=== PATIENT | male | born 1990 | race Caucasian/White ===

== ENCOUNTER 2017-07-05 09:48 | Emergency (ER) | payer OTHER ==
[2017-07-05] MEDS ORDERED: Lidocaine 1% (PF) 30 ML VIAL ONE (11:43)
--- NOTE | 2017-07-05 11:46 | RAD ---
TWO VIEWS LEFT FEMUR: CLINICAL HISTORY: Left thigh laceration. Four views provided. FINDINGS: There is soft tissue irregularity with air density of the distal thigh compatible with laceration. Underlying this region at the anterior aspect of the distal femur, there is subtle cortical irregula rity suggestive of an impaction injury, although this is difficult to reliably assess. IMPRESSION: Subtle impaction fracture suspected at the distal and anterior femur, although cannot be confirmed. Recommend dedicated well-positioned left knee radiograph series for further evaluation. Soft tissue injury. POS: BR[facility]
[2017-07-05] MEDS ORDERED: Bacitracin Zinc 1 Packet ONE (13:15)
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
== END 2017-07-05 14:15 | disposition home or self-care (01) ==
LOC: ERS 09:48
DX: S71.112A Laceration without foreign body, left thigh, initial encounter (principal); F90.9 Attention-deficit hyperactivity disorder, unspecified type; F17.210 Nicotine dependence, cigarettes, uncomplicated; W20.8XXA Other cause of strike by thrown, projected or falling object, initial encounter
CPT/HCPCS: 12032; 99406; J2001

== ENCOUNTER 2018-12-11 21:27 | Inpatient (IN) | payer BC, OTHER ==
[2018-12-11] MEDS ORDERED: Ibuprofen 800 MG TAB ONE (23:15)
[2018-12-11 23:34] LABS: Bilirubin Negative (Negative); Blood, Urine Negative (Negative); Clarity CLEAR (Clear); Glucose, Urine (Dipstick) Negative (Negative); Leukocyte Negative (Negative); Nitrite Negative (Negative); Protein, Urine (Dipstick) 30 mg/dL (Neg-Trace); Specific Gravity, Urine 1.027 (1.002-1.036); Urobilinogen 0.2 mg/dL (0.2-1.0)
[2018-12-11 23:36] LABS: Bacteria/HPF None Seen HPF (None Seen); Hyaline Casts/LPF 0-3 HYALINE CAST LPF (0-3 Hyaline); RBC/HPF 0-3 HPF (0-3); Squamous Epithelial 0-3 HPF (0-3); WBC/HPF 0-3 HPF (0-3)
[2018-12-12 01:08] LABS: #Lymphocytes 0.9 thou/uL (1.20-3.40); #Monocytes 0.8 thou/uL (0.11-0.59); #Neutrophils 13.2 thou/uL (1.40-6.50); %Basophils 0.3 % (0.0-1.0); %Eosinophils 0.2 % (0.0-10.0); %Lymphocytes 5.8 % (21.0-51.0); %Monocytes 5.3 % (0.0-10.0); %Neutrophils 88.4 % (42.0-75.0); Hemoglobin 14.6 g/dL (14.0-18.0); Mean Corpuscular HGB CONC 33.9 g/dL (32.0-36.0); Mean Corpuscular Hemoglobin 29.4 pg (27.0-31.0); Mean Corpuscular Volume 86.7 fL (78.0-98.0); Mean Platelet Volume 8.2 fL (7.4-10.4); Platelet Count 203 thou/uL (130-400); RBC Distribution Width 12.6 % (11.5-14.5); Red Blood Cell (RBC) Count 4.98 mill/uL (4.70-6.10); White Blood Cell (WBC) Count 14.9 thou/uL (4.8-10.8)
[2018-12-12 01:19] LABS: ALT (SGPT) 28 U/L (8-55); AST (SGOT) 22 U/L (5-34); Albumin 4.3 g/dL (3.5-5.0); Alkaline Phosphatase 62 U/L (40-150); Anion Gap 16 mmol/L (10-20); BUN (Urea Nitrogen) 13 mg/dL (8.9-20.6); Bilirubin, Total 0.5 mg/dL (0.2-1.2); CK (CPK) 142 U/L (30-200); Calc. Creatinine Clearance 0 mL/min (70-130); Calcium 9.1 mg/dL (7.8-10.44); Carbon Dioxide 19 mmol/L (22-29); Chloride 106 mmol/L (98-107); Estimated GFR-MDRD 80; Globulin 3.1 g/dL (2.4-3.5); Glucose 132 mg/dL (70-105); Potassium 3.6 mmol/L (3.5-5.1); Protein, Total 7.4 g/dL (6.0-8.3); Sodium 137 mmol/L (136-145)
[2018-12-12] MEDS ORDERED: Aspirin 325 MG TAB ONE (02:57)
[2018-12-12] MEDS ORDERED: Metoclopramide HCl 10 MG/2 ML VIAL ONE (02:57)
[2018-12-12] MEDS ORDERED: Piperacillin/Tazobactam 4.5 GM VIAL ONE (02:57)
[2018-12-12] MEDS ORDERED: Dicyclomine 20 MG TAB ONE (03:46)
[2018-12-12] MEDS ORDERED: Ondansetron ODT 4 MG TAB SL PRN (05:16)
[2018-12-12] MEDS ORDERED: Sodium Chloride 0.9% 1,000 ML IV SCH (05:16)
[2018-12-12] MEDS ORDERED: Acetaminophen 325 MG TAB PO PRN (05:16)
[2018-12-12] MEDS ORDERED: Ondansetron PF 4 MG/2 ML Vial IVP PRN ×2 (05:16→08:43)
[2018-12-12 05:18] VITALS: BMI 46.0
[2018-12-12 07:23] LABS: Troponin I Less than 0.010 ng/mL (< 0.028)
--- NOTE | 2018-12-12 07:32 | RAD ---
2 views of the chest: 12/12/2018 COMPARISON: 09/29/2014 HISTORY: Chest pain FINDINGS: Midline sternotomy wires are present. Azygos lobe and fissure noted. There is an old left c lavicle fracture. No pneumothorax, pleural fluid, focal consolidation, or alveolar edema. IMPRESSION: No acute findings.
--- NOTE | 2018-12-12 07:38 | CT ---
Contrast-enhanced CT images abdomen pelvis. HISTORY: Abdominal pain. Contrast-enhanced CT images of the abdomen and pelvis obtained. The lung bases are unremarkable. No evidence of free intraperitoneal air seen. The liver, 6, spleen, gallbladder, pancreas, adrenal gl ands and kidneys are unremarkable. No dilated loops of small bowel seen. A normal appendix is visualized. Minimally enlarged right lower quadrant mesenteric lymph nodes are present. This may represent mild c hanges of mesenteric adenitis. No evidence of abscess seen. L4-5 vacuum disc changes seen. IMPRESSION: Mildly enlarged mesenteric lymph nodes. QA I concur with the dictation from virtual radi[employer].
[2018-12-12] MEDS ORDERED: Sodium Chloride 0.65% Nasal 44 ML BOT EA NARE PRN (08:43)
[2018-12-12] MEDS ORDERED: Bisacodyl 5 MG TAB PO PRN ×2 (08:43)
[2018-12-12] MEDS ORDERED: Benzonatate 100 MG CAP PO PRN (08:43)
[2018-12-12] MEDS ORDERED: Diabetic Tussin 200 MG/10 ML UDCUP PO PRN (08:43)
[2018-12-12] MEDS ORDERED: hydrALAZINE 20 MG/ML VIAL SLOW IVP PRN (08:43)
[2018-12-12] MEDS ORDERED: Nitroglycerin 0.4 MG TAB (25 Tab Bottle) SL PRN (08:43)
[2018-12-12] MEDS ORDERED: cloNIDine 0.1 MG TAB PO PRN (08:43)
[2018-12-12] MEDS ORDERED: Senokot S 8.6-50 MG TAB PO PRN ×2 (08:43)
[2018-12-12] MEDS ORDERED: Vancomycin HCl 1 GM in Premix Bag 1 BAG IVPB SCH (09:00)
[2018-12-12] MEDS: Enoxaparin Sodium 40 MG/0.4 ML SYRINGE SC SCH (09:30)
[2018-12-12] MEDS: Famotidine 20 MG TAB PO SCH ×2 (09:31→21:40)
[2018-12-12] MEDS: Acetaminophen 325 MG TAB PO PRN ×3 (09:31→21:50)
[2018-12-12] MEDS: Sodium Chloride 0.9% 1,000 ML IV SCH ×2 (09:36→21:44)
[2018-12-12 10:07] LABS: Troponin I Less than 0.010 ng/mL (< 0.028)
[2018-12-12] MEDS ORDERED: Enoxaparin Sodium 100 MG/ML SYRINGE SC SCH (11:00)
--- NOTE | 2018-12-12 12:32 | CT ---
Contrast-enhanced CTA chest. HISTORY: Chest pain and elevated d-dimer Contrast enhanced CTA of the chest performed. 2-D and 3-D reconstruction images performed on the [employer] 3-D workstation. Raff the aortic arch is unremarkable. No evidence of mediastinal, axillary or hilar lymphadenopathy seen. No evidence of filling defects seen in the pulmonary arteries to suggest pulmonary emboli. No evidence of pleural or pericardial effusion seen. Old healed left clavicular fracture seen. IMPRESSION: Unremarkable CTA chest.
--- NOTE | 2018-12-12 12:45 | ULT ---
EXAM: Bilateral lower extremity venous ultrasound HISTORY: Bilateral lower extremity pain and edema COMPARISON: None TECHNIQUE: Multiplanar grayscale and color Doppler images were obtained in a bilateral lower extremit y venous ultrasound. Spectral analysis of the Doppler waveforms were performed. FINDINGS: The bilateral common femoral vein, profunda femoral veins, superficial femoral veins, and p opliteal veins are normal in appearance without visible thrombus. These vessels demonstrate normal compression, flow, and augmentation. The bilateral posterior tibial veins and greater saphenous veins are patent without evidence of DVT. IMPRESSION: No evidence of DVT.
[2018-12-12 13:32] LABS: Amphetamine Not Detected (NotDetected); Barbiturates Screen Not Detected (NotDetected); Benzodiazepine Screen Not Detected (NotDetected); Cocaine Metabolite Screen Not Detected (NotDetected); Medtox Control Line Valid? VALID (VALID); Medtox Reader # READER 4; Methadone Not Detected (NotDetected); Methamphetamine Not Detected (NotDetected); Opiate Screen Not Detected (NotDetected); Oxycodone Screen Not Detected (NotDetected); Phencyclidine (PCP) Not Detected (NotDetected); THC/Cannabinoid Screen Not Detected (NotDetected); Tricyclic Screen Not Detected (NotDetected)
--- NOTE | 2018-12-12 13:38 | HP ---
PRIMARY CARE PHYSICIAN: None. CHIEF COMPLAINT: Fever, body aches, cough, chest pain. HISTORY OF PRESENTING ILLNESS: Mr. 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 History is mainly obtained by the patient himself and electronic medical records have been reviewed. Mr. Shah states that he has been having generalized malaise and weakness for the last three days, but yesterday, he started to experience high-grade fever as high as 102. This is associated with diffuse lower abdominal pain, diarrhea, nausea, vomiting, and body aches. He also has been having some on and off sharp chest pain without any specific dizziness or shortness of breath. He denies any recent sick contacts. He denies any recent travel. No dyspnea on exertion or orthopnea or PND. He denies any hematochezia or melena. He denies any dysuria, frequency, or urgency. Upon presentation to the emergency room, his blood pressure was 109/69. He was tachycardic with a heart rate of 115, and temperature 102.5. His workup was rather unremarkable. His CBC shows leukocytosis with WBCs of 14.9 with 88% neutrophils. Serum chemistry was unremarkable. Serial cardiac enzymes were normal. Lactic acid was normal. Urinalysis did not have any evidence of any infection. Chest x-ray did not show any evidence of pneumonia per my review. Underwent a CT scan of the abdomen and pelvis because of complaints of diarrhea and abdominal pain, which did not show any acute changes. Appendix was normal. Liver, spleen, gallbladder, pancreas, adrenal gland, and kidneys were normal. He was given empiric antibiotics and is now being admitted to Medicine Service for further evaluation and care. He denies any open sores, wounds, or recent trauma. He denies any joint pain or muscle pain. PAST MEDICAL HISTORY: 1. Gout. 2. History of congenital pyloric stenosis requiring surgery. 3. History of infective endocarditis with valve replacement due to surgery of pyloric stenosis. The patient is unsure what exact surgery was it. Mother is not in the room at this time. PAST SURGICAL HISTORY: 1. Open heart surgery x3. 2. Pediatric valve replacement. PSYCHIATRIC HISTORY: ADHD. SOCIAL HISTORY: He currently uses vapor tobacco. No history of drug or alcohol abuse. FAMILY HISTORY: No significant family history of bleeding or clotting disorders. No history of cardiac disease. ALLERGIES: NO KNOWN MEDICATION ALLERGIES. CURRENT MEDICATION: Allopurinol 100 mg a day. REVIEW OF SYSTEMS: A 14-point review of system is done, it is negative except for those mentioned in the history and physical. LABORATORY DATA: Lab examination as per HPI. A 12-lead EKG by my review shows sinus tachycardia with incomplete right bundle branch block PHYSICAL EXAMINATION: VITAL SIGNS: Most recent vital signs, T-max 101.4, heart rate 101 to 109, saturating 96% on room air, respirations 18. Blood pressure 129/57. GENERAL: He is lying comfortably in bed and is in no acute distress. He is awake, alert, and oriented x3. No respiratory distress noticed either. One of the onset at bedside. HEENT: Mucous membrane is moist and pink. No oropharyngeal exudate or erythema. Head is normocephalic and atraumatic. Pupils are equal and reactive to light and accommodation. Extraocular movements are intact. NECK: Supple without any lymphadenopathy, JVD, or bruit. CHEST: Clear to auscultation without any wheezing, rales, or rhonchi. HEART: Rate and rhythm are regular without any murmurs, rubs, or gallops. ABDOMEN: Soft, nontender, nondistended, and obese. No guarding, rebound, or rigidity. EXTREMITIES: Free of any cyanosis, clubbing, or edema. SKIN: Free of any erythema or rashes, bruises, or warmth. NEUROLOGIC: Nonfocal. PSYCHIATRIC: Normal affect. IMPRESSION AND PLAN: 1. Febrile illness. This patient does have leukocytosis, but no real source of infection. He does not have elevated lactic acid. Most likely a viral illness; however, we will have to rule out PE and DVT given the fever and no other source and possible chest pain at presentation. His cardiac enzymes have been unremarkable. D-dimer will be ordered and if it is positive, we will get a CT angio of the thorax as well as lower extremity Doppler ultrasound. If the D-dimer is elevated, he will be treated with full dose of Lovenox until CT angio and DVT is ruled out. Otherwise, he will be continued on empiric IV antibiotics. Blood cultures have been obtained and we will follow the results. We will also check the stool for any C diff. We will also check respiratory viral pathogen by PCR. An echocardiogram will also be done to rule out any possibility of recurrent infective endocarditis, though it is less likely. 2. History of gout. Restart home medications of allopurinol. 3. History of congenital infective endocarditis as a postsurgical complication. Currently stable. Echo as above. 4. Deep venous thrombosis and gastrointestinal prophylaxis and walking program. DISPOSITION: Mr. Shah is being admitted to the hospital for a febrile illness of unknown etiology. He does not have sepsis. Further management will depend upon his clinical course, but estimated length of stay at this time is at least 2 to 3 midnights. Job ID: [id number]
[2018-12-12] MEDS ORDERED: ISOVUE-370 76%-LOCM 1 ML ONE (13:50)
[2018-12-12] MEDS: Ondansetron ODT 4 MG TAB PO PRN (13:50)
[2018-12-12] MEDS: Piperacillin/Tazobactam 3.375 GM in Sodium Chloride 0.9% 100 ML IVPB SCH ×2 (13:50→17:46)
[2018-12-12] MEDS ORDERED: Iopamidol 370 76% 100 ML VIAL ONE (13:56)
[2018-12-13] MEDS: Piperacillin/Tazobactam 3.375 GM in Sodium Chloride 0.9% 100 ML IVPB SCH ×5 (00:05→23:09)
[2018-12-13] MEDS: Sodium Chloride 0.9% 1,000 ML IV SCH ×3 (01:50→23:56)
[2018-12-13] MEDS: Acetaminophen 325 MG TAB PO PRN (09:49)
[2018-12-13] MEDS: Famotidine 20 MG TAB PO SCH ×2 (09:49→20:35)
[2018-12-13] MEDS: Allopurinol 100 MG TAB PO SCH (09:49)
[2018-12-13] MEDS: Ondansetron ODT 4 MG TAB PO PRN ×3 (09:49→23:55)
[2018-12-13] MEDS: Enoxaparin Sodium 40 MG/0.4 ML SYRINGE SC SCH (09:50)
--- NOTE | 2018-12-13 10:02 | PDOC.PN ---
- Subjective Encounter Start Date: 12/13/18 Encounter Start Time: 10:01 Patient seen and examined, states he feels better, only has abdominal pain and nothing else. - Objective Vital Signs & Weight: Vital Signs (12 hours) Temp Pulse Resp BP Pulse Ox 12/13/18 07:40 100.1 F H 84 15 131/79 93 L 12/13/18 04:00 99.0 F 80 18 116/55 L 97 12/13/18 00:00 98.9 F 94 18 111/54 L 94 L Weight Weight 321 lb 6.4 oz I&O: 12/12/18 12/13/18 12/14/18 06:59 06:59 06:59 Intake Total 1750 Balance 1750 Result Diagrams: 12/12/18 00:43 12/12/18 00:43 Phys Exam - Physical Examination Constitutional: NAD obese HEENT: PERRLA, moist MMs, sclera anicteric Neck: no nodes, no JVD, supple Respiratory: no wheezing, no rales, no rhonchi Cardiovascular: RRR, no significant murmur, no rub Gastrointestinal: soft, non-tender, no distention Musculoskeletal: pulses present, edema present Dx/Plan (1) Sepsis Code(s): A41.9 - SEPSIS, UNSPECIFIED ORGANISM Status: Acute (2) Diarrhea Code(s): R19.7 - DIARRHEA, UNSPECIFIED Status: Acute (3) Abdominal pain Code(s): R10.9 - UNSPECIFIED ABDOMINAL PAIN Status: Acute (4) Pneumonia Code(s): J18.9 - PNEUMONIA, UNSPECIFIED ORGANISM Status: Acute (5) Chest pain Code(s): R07.9 - CHEST PAIN, UNSPECIFIED Status: Acute - Plan * cultures pending, cont abx * fevers reducing * labs in AM * chest pain + SOb improved, continues to have abdominal pain and diarhea * will await culture results and cont abx for now * case and plan d/w patient at length, he understood and agreed with this plan.
[2018-12-13 14:18] LABS: #Basophils 0.1 thou/uL (0.0-0.2); #Eosinphils 0.2 thou/uL (0.0-0.7); #Lymphocytes 1.6 thou/uL (1.20-3.40); #Monocytes 0.8 thou/uL (0.11-0.59); #Neutrophils 5.8 thou/uL (1.40-6.50); %Basophils 0.9 % (0.0-1.0); %Eosinophils 2.9 % (0.0-10.0); %Lymphocytes 19.2 % (21.0-51.0); %Neutrophils 68.1 % (42.0-75.0); Hemoglobin 14.1 g/dL (14.0-18.0); Mean Corpuscular HGB CONC 33.3 g/dL (32.0-36.0); Mean Corpuscular Hemoglobin 29.6 pg (27.0-31.0); Mean Corpuscular Volume 88.8 fL (78.0-98.0); Mean Platelet Volume 7.6 fL (7.4-10.4); Platelet Count 180 thou/uL (130-400); RBC Distribution Width 12.6 % (11.5-14.5); Red Blood Cell (RBC) Count 4.78 mill/uL (4.70-6.10); White Blood Cell (WBC) Count 8.5 thou/uL (4.8-10.8)
[2018-12-13 14:36] LABS: Vancomycin, Trough 11.7 ug/mL
[2018-12-13 14:38] LABS: Anion Gap 13 mmol/L (10-20); BUN (Urea Nitrogen) 12 mg/dL (8.9-20.6); Calc. Creatinine Clearance 172 mL/min (70-130); Calcium 8.9 mg/dL (7.8-10.44); Carbon Dioxide 22 mmol/L (22-29); Chloride 110 mmol/L (98-107); Estimated GFR-MDRD 64; Glucose 100 mg/dL (70-105); Potassium 3.9 mmol/L (3.5-5.1); Sodium 141 mmol/L (136-145)
[2018-12-14] MEDS: Piperacillin/Tazobactam 3.375 GM in Sodium Chloride 0.9% 100 ML IVPB SCH ×4 (05:14→23:44)
[2018-12-14] MEDS: Enoxaparin Sodium 40 MG/0.4 ML SYRINGE SC SCH (08:34)
[2018-12-14] MEDS: Allopurinol 100 MG TAB PO SCH (08:34)
[2018-12-14] MEDS: Famotidine 20 MG TAB PO SCH ×2 (08:34→20:29)
--- NOTE | 2018-12-14 10:24 | PDOC.PN ---
- Subjective Encounter Start Date: 12/14/18 Encounter Start Time: 10:22 Patient seen and examined, states his diarrhea is improving, did have 2-3 bouts overnight, no other issues. All questions answered. - Objective Vital Signs & Weight: Vital Signs (12 hours) Temp Pulse Resp BP Pulse Ox 12/14/18 07:57 98.9 F 70 18 131/71 92 L 12/14/18 03:46 98.1 F 72 16 160/87 H 97 12/13/18 23:09 98.3 F 70 16 125/67 96 Weight Weight 321 lb 6.4 oz I&O: 12/13/18 12/14/18 12/15/18 06:59 06:59 06:59 Intake Total 1750 3725 300 Balance 1750 3725 300 Result Diagrams: 12/13/18 14:11 12/13/18 14:11 Phys Exam - Physical Examination Constitutional: NAD obese HEENT: PERRLA, moist MMs, sclera anicteric Neck: no nodes, no JVD, supple Respiratory: no wheezing, no rales, no rhonchi Cardiovascular: RRR, no significant murmur, no rub Gastrointestinal: soft, non-tender, no distention Musculoskeletal: pulses present, edema present (trace) Dx/Plan (1) Sepsis Code(s): A41.9 - SEPSIS, UNSPECIFIED ORGANISM Status: Acute (2) Diarrhea Code(s): R19.7 - DIARRHEA, UNSPECIFIED Status: Acute (3) Abdominal pain Code(s): R10.9 - UNSPECIFIED ABDOMINAL PAIN Status: Acute (4) Pneumonia Code(s): J18.9 - PNEUMONIA, UNSPECIFIED ORGANISM Status: Acute (5) Chest pain Code(s): R07.9 - CHEST PAIN, UNSPECIFIED Status: Acute - Plan * cont abx for now, diarrhea improving * repeat CBC/BMP in AM * patient refused cultures, no fevers overnight * DC plans in AM if patient's CBC normal and afebrile and serenity hurley * case and plan d/w patient at length, he understood and agreed with this plan.
[2018-12-14] MEDS: Sodium Chloride 0.9% 1,000 ML IV SCH ×2 (11:48→20:29)
[2018-12-14] MEDS: Acetaminophen 325 MG TAB PO PRN (12:28)
--- NOTE | 2018-12-14 15:40 | EKG ---
Test Reason : Blood Pressure : / mmHG Vent. Rate : 117 BPM Atrial Rate : 117 BPM P-R Int : 136 ms QRS Dur : 098 ms QT Int : 342 ms P-R-T Axes : 011 136 044 degrees QTc Int : 477 ms Sinus tachycardia Right axis deviation Incomplete right bundle branch block Abnormal ECG Confirmed by ROSALINA CABRERA ([id number]), television news video editor KIRSTEN ALVES ([id number]) on 12/14/2018 3:40:10 PM Referred By: Confirmed By:ROSALINA CABRERA
[2018-12-15] MEDS: Sodium Chloride 0.9% 1,000 ML IV SCH ×2 (00:40→12:54)
[2018-12-15 05:59] LABS: #Basophils 0.1 thou/uL (0.0-0.2); #Eosinphils 0.3 thou/uL (0.0-0.7); #Lymphocytes 1.6 thou/uL (1.20-3.40); #Monocytes 0.6 thou/uL (0.11-0.59); #Neutrophils 7.1 thou/uL (1.40-6.50); %Basophils 0.6 % (0.0-1.0); %Lymphocytes 16.6 % (21.0-51.0); %Monocytes 6.5 % (0.0-10.0); %Neutrophils 73.3 % (42.0-75.0); Hemoglobin 12.9 g/dL (14.0-18.0); Mean Corpuscular HGB CONC 33.5 g/dL (32.0-36.0); Mean Corpuscular Hemoglobin 29.8 pg (27.0-31.0); Mean Corpuscular Volume 88.8 fL (78.0-98.0); Mean Platelet Volume 8.1 fL (7.4-10.4); Platelet Count 196 thou/uL (130-400); RBC Distribution Width 12.5 % (11.5-14.5); Red Blood Cell (RBC) Count 4.33 mill/uL (4.70-6.10); White Blood Cell (WBC) Count 9.7 thou/uL (4.8-10.8)
[2018-12-15] MEDS: Piperacillin/Tazobactam 3.375 GM in Sodium Chloride 0.9% 100 ML IVPB SCH ×2 (06:02→12:49)
[2018-12-15 06:22] LABS: Anion Gap 13 mmol/L (10-20); BUN (Urea Nitrogen) 11 mg/dL (8.9-20.6); Calc. Creatinine Clearance 222 mL/min (70-130); Calcium 8.9 mg/dL (7.8-10.44); Carbon Dioxide 21 mmol/L (22-29); Chloride 108 mmol/L (98-107); Estimated GFR-MDRD 87; Glucose 96 mg/dL (70-105); Potassium 4.4 mmol/L (3.5-5.1); Sodium 138 mmol/L (136-145)
[2018-12-15] MEDS: Allopurinol 100 MG TAB PO SCH (08:43)
[2018-12-15] MEDS: Enoxaparin Sodium 40 MG/0.4 ML SYRINGE SC SCH (08:43)
[2018-12-15] MEDS: Famotidine 20 MG TAB PO SCH (08:43)
--- NOTE | 2018-12-15 11:50 | PDOC.EVN ---
Event Note - Event Note Event Note: DC SUMMARY #[id number]
[2018-12-15 12:05] VITALS: BP 118/76
[2018-12-15] MEDS: Acetaminophen 325 MG TAB PO PRN (12:49)
[2018-12-15 12:58] VITALS: TEMP 98.2
--- NOTE | 2018-12-16 01:34 | DIS ---
DATE OF ADMISSION: 12/12/2018 DATE OF DISCHARGE: 12/15/2018 ADMITTING DIAGNOSES: Diarrhea, sepsis, chest pain, gout. DISCHARGE DIAGNOSES: Diarrhea, resolving; sepsis, resolving; gout, stable. HOSPITAL COURSE: This is a 28-year-old male coming in with worsening of diarrhea, stated that he had a history of congenital pyloric stenosis which was repaired earlier in his life when he was a child. Also, had a history of infective endocarditis requiring a valve replacement in his infancy. He is not sure which valve was infected nor does he have any other further history about his surgeries from the past. The patient presents with a 3- to 4-day diagnosis of diarrhea, chest pains as well as mild shortness of breath. The patient was found to have a fever of 102.5 with a heart rate of 155. Upon the time of admission, the patient was admitted to Internal Medicine Team, had a CTA of his chest done as well as bilateral lower extremity ultrasounds as well as CT of his abdomen, all of which were negative for DVT, pulmonary embolism, or any acute processes in the gastrointestinal tract. The patient had stool cultures done which were negative, C. difficile was negative. Blood cultures are negative at 72 hours. Influenza A and B were negative as well. White count was normalizing. Upon the time of discharge, the patient was afebrile, responding to antibiotics and fluids. The patient tolerating a diet as well upon the time of discharge. The patient was given a prescription for Levaquin and Flagyl to be taken for 5 more days to complete a total of 7-day course and follow up with outpatient PCP within 1 week for further management and care. DISPOSITION: Home. FOLLOWUP: Follow up with PCP within 1 week. ACTIVITY: As tolerated with assistance as needed. DIET: Low-fat, low-calorie, high-fiber diet. CONDITION: Stable. PROGNOSIS: Good. Case and plan discussed with the patient at length. He understood and agreed with this plan. Job ID: [id number]
--- NOTE | 2018-12-17 10:52 | PQF ---
GIORGI REAL NACHO SIMPSON [id number] [address] [place] [address] [id number] CLINICAL DOCUMENTATION IMPROVEMENT CLARIFICATION FORM: ICD-10 Updated PLEASE DO AN ADDENDUM TO THE PROGRESS NOTE WITH ANY DOCUMENTATION UPDATES OR ADDITIONS AND CARRY THROUGH TO DC SUMMARY. THANK YOU. DATE: 12/17/18 ATTN: Dr. Garcia Please exercise your independent, professional judgment in responding to the clarification form. Clinical indicators are provided on the bottom of this form for your review Please check appropriate box(s): BMI > 40 with associated diagnosis of: (check one) [ ] Morbid (Severe) Obesity [ ] Due to excess calories [ ] with Alveolar Hypoventilation (Pickwickian syndrome) [ ] Overweight [ ] Obesity [ ] Other diagnosis [ ] Unable to determine In addition, please specify: Present on Admission (POA): [ ] Yes [ ] No [ ] Unable to Determine For continuity of documentation, please document condition throughout progress notes and discharge summary. Thank You. BMI < 19 Under weight 19 - 24.9 Healthy 25.0 - 29.9Slightly Overweight 30.0 - 34.9Obese 35.0 - 39.9Severely Obese 40.0 and OverMorbidly Obese CLINICAL INDICATORS - SIGNS / SYMPTOMS / LABS BMI of: 46 [employer] Need for larg BP cuff/large wheelchair, etc. per hospital protocol RISK FACTORS sepsis and pneumonia / IM note TREATMENTS: walking program per 12/12 H&P diet: low fat-low calorie, high fiber 12/13 orders (This form is maintained as a part of the permanent medical record) 2014 [employer], [employer] All Rights Reserved Maryana Lowry, RN, BSN, CCDS [email or web address]
== END 2018-12-15 14:58 | disposition home or self-care (01) | DRG 871 ==
LOC: ERS 21:27 → 2SE 12-12 02:45
PROVIDERS: ADMIT Family Medicine; ATTEND Family Medicine
DX: A41.9 Sepsis, unspecified organism (principal); J18.9 Pneumonia, unspecified organism; F90.9 Attention-deficit hyperactivity disorder, unspecified type; M10.9 Gout, unspecified; F17.290 Nicotine dependence, other tobacco product, uncomplicated; R19.7 Diarrhea, unspecified; Z95.2 Presence of prosthetic heart valve; Z98.890 Other specified postprocedural states
CPT/HCPCS: 36415; 36416; 71046; 71275; 74177; 80048; 80053; 80202; 80306; 81003; 81015; 82550; 83605; 84484; 85025; 85379; 87040; 87324; 87449; 87633; 87798; 87804; 93005; 93306; 93970; 96365; 96368; 96375; J1650; J2543; J2765; J3370; J3490; J7050; Q0162; Q9966; Q9967

== ENCOUNTER 2020-01-23 16:25 | Emergency (ER) | payer BC, SELFPAY ==
[2020-01-23] MEDS ORDERED: Lidocaine 1% w/Epinephrine 1:100K 20 ML VIAL ONE (16:31)
[2020-01-23] MEDS ORDERED: Adacel (T-DAP) 0.5 ML SYRINGE ONE (17:27)
--- NOTE | 2020-01-23 17:47 | RAD ---
LEFT ELBOW FOUR VIEW: 01/23/20 HISTORY: Laceration of the elbow. COMPARISON: None. FINDINGS: There is no acute fracture or malalignment. No significant joint effusion. No radiopaque foreign obje ct is appreciated. The known laceration is not well evaluated. IMPRESSION: 1. No acute fracture or malalignment. 2. No significant joint effusion. 3. No radiopaque foreign object appreciated. POS: HOME
== END 2020-01-23 18:18 | disposition home or self-care (01) ==
LOC: ERS 16:25
DX: S51.012A Laceration without foreign body of left elbow, initial encounter (principal); F17.210 Nicotine dependence, cigarettes, uncomplicated; Z79.899 Other long term (current) drug therapy; W20.8XXA Other cause of strike by thrown, projected or falling object, initial encounter
CPT/HCPCS: 12001; 90471; 90715

== ENCOUNTER 2020-07-09 09:49 | Observation (INO) | payer SELFPAY ==
[2020-07-09 10:42] LABS: #Eosinphils 0.3 thou/uL (0.0-0.7); #Lymphocytes 1.5 thou/uL (1.20-3.40); #Monocytes 0.9 thou/uL (0.11-0.59); #Neutrophils 6.5 thou/uL (1.40-6.50); %Basophils 0.4 % (0.0-1.0); %Eosinophils 2.9 % (0.0-10.0); %Lymphocytes 16.1 % (21.0-51.0); %Monocytes 9.7 % (0.0-10.0); %Neutrophils 70.9 % (42.0-75.0); Hemoglobin 15.4 g/dL (14.0-18.0); Mean Corpuscular HGB CONC 33.4 g/dL (32.0-36.0); Mean Corpuscular Hemoglobin 30.1 pg (27.0-31.0); Mean Platelet Volume 9.3 fL (7.4-10.4); Platelet Count 148 thou/uL (130-400); RBC Distribution Width 12.6 % (11.5-14.5); Red Blood Cell (RBC) Count 5.13 mill/uL (4.70-6.10); White Blood Cell (WBC) Count 9.2 thou/uL (4.8-10.8)
[2020-07-09 10:51] LABS: ALT (SGPT) 24 U/L (8-55); AST (SGOT) 18 U/L (5-34); Albumin 4.1 g/dL (3.5-5.0); Alkaline Phosphatase 63 U/L (40-110); Anion Gap 14 mmol/L (10-20); BUN (Urea Nitrogen) 12 mg/dL (8.9-20.6); Bilirubin, Total 0.5 mg/dL (0.2-1.2); Calc. Creatinine Clearance 0 mL/min (70-130); Calcium 9.6 mg/dL (7.8-10.44); Carbon Dioxide 25 mmol/L (22-29); Chloride 106 mmol/L (98-107); Estimated GFR-MDRD Greater than 90; Globulin 3.5 g/dL (2.4-3.5); Glucose 156 mg/dL (70-105); Potassium 3.7 mmol/L (3.5-5.1); Protein, Total 7.6 g/dL (6.0-8.3); Sodium 141 mmol/L (136-145)
--- NOTE | 2020-07-09 11:23 | CT ---
CT ABDOMEN AND PELVIS WITH IV CONTRAST 07/09/2020 CLINICAL INFORMATION: Acute abdominal pain. Diverticulitis. COMPARISON: None. Technique: Multiple contiguous axial CT images are obtained through the abdomen and pelvis with IV contrast. Cor onal reformatted images are provided. FINDINGS: Lower Chest: Lung bases are clear. Vessels: Abdominal aorta is normal in caliber. Abdomen: There is no fluid collection seen to suggest an abscess. Portal vein:Patent Gallbladder: Within normal limits for CT imaging. Liver: within normal limits. Spleen: within normal limits. Pancreas: within normal limits. Adrenals: within normal limits. Kidneys: within normal limits. Bowel: There is colonic diverticulosis involving the descending colon. There is focal area of colonic wall thickening with adjacent pericolonic inflammatory changes involving the descending colon suggestive of diverticulitis. Appendix: The appendix is visualized and normal in caliber. Peritoneum: Punctate focus of gas adjacent to a diverticulum posterior aspect of the descending colon in region of colonic wall thickening. This represent gas within the diverticulum, but a punctate focus of free intraperitoneal gas is a possibility. Mesentery and Retroperitoneum: No enlarged mesenteric or retroperitoneal lymph nodes. Previously desc ribed mildly enlarged mesenteric and right lower quadrant lymph nodes on prior study have decreased in size or resolved. Abdominal Wall: within normal limits. Pelvis: Reproductive Organs: No pelvic masses. Bladder: within normal limits. Bones: Degenerative changes at the L4-5 level. IMPRESSION: Diverticulitis involving the descending colon without adjacent fluid collection to suggest abscess. T here is a single punctate gas density adjacent to a posterior descending colon diverticulum which could just represent gas within the diverticulum, but a focus of free intraperitoneal gas related to microperforation cannot be excluded. Above findings discussed with Thu Evans, nurse practitioner in the emergency department on 07/09/2020 at 1118 hours.
[2020-07-09] MEDS ORDERED: Piperacillin/Tazobactam 4.5 GM VIAL ONE (12:04)
[2020-07-09] MEDS ORDERED: metroNIDAZOLE 500 MG/100 ML BAG ONE (12:04)
[2020-07-09 13:05] LABS: Bilirubin Negative (Negative); Blood, Urine Negative (Negative); Clarity Clear (Clear); Glucose, Urine (Dipstick) Normal (Negative); Ketone, Urine Negative (Negative); Leukocyte Negative Leu/uL (Negative); Nitrite Negative (Negative); Protein, Urine (Dipstick) 10 mg/dL (Neg-Trace); Specific Gravity, Urine 1.049 (1.002-1.036); Urobilinogen Normal mg/dL (Less than 2); pH, Urine 6.5 (5.0-9.0)
[2020-07-09] MEDS ORDERED: Acetaminophen 325 MG TAB PO PRN (13:38)
[2020-07-09] MEDS ORDERED: Acetaminophen 650 MG Suppository PR PRN (13:38)
[2020-07-09] MEDS ORDERED: Iopamidol-370 76% 500 ML 1 ML ONE (14:06)
[2020-07-09] MEDS ORDERED: Lorazepam 2 MG/ML VIAL SLOW IVP PRN (14:10)
[2020-07-09] MEDS ORDERED: Diazepam 5 MG TAB PO PRN (14:21)
--- NOTE | 2020-07-09 14:27 | PDOC.HHP ---
Hospitalist HPI - History of Present Illness History of Present Illness: ADMISSION DATE: 07/09/2020 TIME OF ASSESSMENT: PRIMARY CARE PHYSICIAN: GISELLA Liang CHIEF COMPLAINT: Left lower abdominal pain HPI: Patient presents to the emergency department with complaints of abdominal pain that started on Sunday while he was still in [place]. States it was an 8 out of 10 in severity, constant and worse with movement. Denies any injuries or trauma. No heavy lifting. The patient drove home on Sunday and states the pain continued to be severe. His worse in the left lower quadrant and he denies having any associated nausea vomiting or stool changes. He was concerned it was possibly associated with constipation and therefore took laxatives at home which should not help. He did have regular soft stools. Last bowel movement was today and he denies noting any melena or bright red blood per rectum. He saw the [facility] [employer] [facility] at [facility] today and was advised to come into the emergency department due to severe tenderness in the left lower quadrant. Patient states the pain was a 10 out of 10 in severity. Currently pain is under control and has nearly resolved completely. Denies any nausea or vomiting. No recent fevers, chills or sweats. No headaches or dizziness. No chest pain, palpitations or shortness of breath. No urinary symptoms. All other review of systems apart from that mentioned above in HPI are negative. ED COURSE: In the emergency department the patient underwent an EKG that showed normal sinus rhythm with a heart of 81. CT imaging of the abdomen and pelvis demonstrated diverticulitis involving the descending colon without any adjacent fluid. No evidence of fluid collection or abscess. There was a single punctate gas density adjacent to a posterior descending colon diverticulum felt to represent gas within the diverticulum versus free intraperitoneal gas from microperforation. Per ED notes manges are reviewed by Dr. Ellsworth who felt there is no evidence of perforation. Lab studies showed a normal full blood count. Platelets 140. CMP unremarkable. BUN 12, creatinine 0.88, GFR greater than 90. LFTs normal. Urinalysis unremarkable. She was started on IV antibiotics with Zosyn and metronidazole. He received 1 L of normal saline. PAST MEDICAL HISTORY: 1. Gout 2. Heavy alcohol abuse 3. Obesity 4. ADHD PAST SURGICAL HISTORY: 1. Bowel surgery as an infant 2. Valve replacement as an 3. Repeat valve repair at 6 years SOCIAL HISTORY: Patient reports drinking a 12 pack of light beer on a daily basis. Admits to symptoms of withdrawal when he does not drink which includes hand tremors. Denies any history of alcohol withdrawal seizures. Reports social tobacco use and denies any drug use. FAMILY HISTORY: Family history of diverticulitis. ALLERGIES: No known drug allergies CURRENT MEDICATIONS: Allopurinol 100 mg p.o. daily - Exam General Appearance: NAD, awake alert Eye: PERRL, anicteric sclera ENT: normocephalic atraumatic, no oropharyngeal lesions Neck: supple, no lymphadenopathy Heart: RRR, normal peripheral pulses Respiratory: CTAB, no wheezes, no rales, normal chest expansion Gastrointestinal: soft, non-distended, normal bowel sounds, no guarding, no rigidity, tender to palpation (left lower quadrant, states better than this morning) Extremities: no edema Extremities - other findings: Lft leg girth>rt, patient states it is chronic, nontender,recent long drive Skin: normal turgor, no lesions, no rashes Neurological: cranial nerve grossly intact, normal sensation to touch Musculoskeletal: normal tone, normal strength, no muscle wasting Psychiatric: normal affect, normal behavior, A&O x 3 Hospitalist Results - Labs Result Diagrams: 07/09/20 10:21 07/09/20 10:21 Lab results: WBC 9.2 thou/uL (4.8-10.8) 07/09/20 10:21 Hgb 15.4 g/dL (14.0-18.0) 07/09/20 10:21 Hct 46.1 % (42.0-52.0) 07/09/20 10:21 MCV 90.0 fL (78.0-98.0) 07/09/20 10:21 Plt Count 148 thou/uL (130-400) 07/09/20 10:21 Neutrophils % 70.9 % (42.0-75.0) 07/09/20 10:21 Sodium 141 mmol/L (136-145) 07/09/20 10:21 Potassium 3.7 mmol/L (3.5-5.1) 07/09/20 10:21 Chloride 106 mmol/L (98-107) 07/09/20 10:21 Carbon Dioxide 25 mmol/L (22-29) 07/09/20 10:21 BUN 12 mg/dL (8.9-20.6) 07/09/20 10:21 Creatinine 0.88 mg/dL (0.7-1.3) 07/09/20 10:21 Glucose 156 mg/dL (70-105) H 07/09/20 10:21 Calcium 9.6 mg/dL (7.8-10.44) 07/09/20 10:21 Total Bilirubin 0.5 mg/dL (0.2-1.2) 07/09/20 10:21 AST 18 U/L (5-34) 07/09/20 10:21 ALT 24 U/L (8-55) 07/09/20 10:21 Alkaline Phosphatase 63 U/L (40-110) 07/09/20 10:21 Serum Total Protein 7.6 g/dL (6.0-8.3) 07/09/20 10:21 Albumin 4.1 g/dL (3.5-5.0) 07/09/20 10:21 Urine Ketones Negative mg/dL (Negative) 07/09/20 12:20 Urine Blood Negative (Negative) 07/09/20 12:20 Urine Nitrite Negative (Negative) 07/09/20 12:20 Ur Leukocyte Esterase Negative Rosa/uL (Negative) 07/09/20 12:20 - Radiology Interpretation CT scan - abdomen Status: report reviewed by co Hospitalist H&P A/P - Problem (1) Diverticulitis Code(s): K57.92 - DVTRCLI OF INTEST, PART UNSP, W/O PERF OR ABSCESS W/O BLEED Status: Acute Assessment and Plan: Continue IV antibiotics (Zosyn and metronidazole) Continue IV fluids. Check lactic acid. Day team to determine if surgical consult indicated. Does not appear to have any evidence of perforation at present. Images reviewed by Dr. Ellsworth. (2) Alcohol abuse Code(s): F10.10 - ALCOHOL ABUSE, UNCOMPLICATED Status: Chronic Assessment and Plan: ASE protocol Ativan prn for agitation Check Mg+, vitamin B12 and folate. (3) Gout Code(s): M10.9 - GOUT, UNSPECIFIED Status: Chronic Assessment and Plan: Resume home medications once verified. (4) Obesity Code(s): E66.9 - OBESITY, UNSPECIFIED Status: Chronic - Plan Plan: GI prophylaxis with Famotidine. DVT Prophylaxis: will obtain venous doppler of left lower extremity due to r ecent long distance drive, though patient states this is chronic for him. If negative, may use mechanical SCDs. CODE STATUS FULL
[2020-07-09] MEDS ORDERED: Thiamine HCl 200 MG/2 ML VIAL IM SCH ×2 (14:30→20:00)
[2020-07-09 14:57] VITALS: BMI 45.6
[2020-07-09 16:30] LABS: Lactic Acid 2.4 mmol/L (0.5-2.2)
[2020-07-09] MEDS: Sodium Chloride 0.9% 1,000 ML IV SCH (17:12)
[2020-07-09] MEDS: Piperacillin/Tazobactam 4.5 GM in Sodium Chloride 0.9% 100 ML IVPB SCH (17:15)
[2020-07-09] MEDS: metroNIDAZOLE 500 MG in Premix Bag 1 BAG IVPB SCH (20:14)
[2020-07-09] MEDS: Famotidine/PF 20 mg/2ml Vial SLOW IVP SCH (20:14)
[2020-07-10] MEDS: Piperacillin/Tazobactam 4.5 GM in Sodium Chloride 0.9% 100 ML IVPB SCH ×4 (00:13→18:15)
[2020-07-10] MEDS ORDERED: Diazepam 5 MG TAB PO PRN (04:00)
[2020-07-10] MEDS: metroNIDAZOLE 500 MG in Premix Bag 1 BAG IVPB SCH ×3 (04:06→20:32)
[2020-07-10] MEDS: Sodium Chloride 0.9% 1,000 ML IV SCH (04:06)
[2020-07-10 05:07] LABS: #Basophils 0.1 thou/uL (0.0-0.2); #Eosinphils 0.3 thou/uL (0.0-0.7); #Lymphocytes 1.8 thou/uL (1.20-3.40); #Monocytes 0.9 thou/uL (0.11-0.59); #Neutrophils 5.3 thou/uL (1.40-6.50); %Basophils 0.8 % (0.0-1.0); %Lymphocytes 21.2 % (21.0-51.0); %Monocytes 10.5 % (0.0-10.0); %Neutrophils 63.4 % (42.0-75.0); Hemoglobin 13.9 g/dL (14.0-18.0); Mean Corpuscular HGB CONC 33.4 g/dL (32.0-36.0); Mean Corpuscular Hemoglobin 30.2 pg (27.0-31.0); Mean Corpuscular Volume 90.5 fL (78.0-98.0); Mean Platelet Volume 7.8 fL (7.4-10.4); Platelet Count 203 thou/uL (130-400); RBC Distribution Width 12.5 % (11.5-14.5); Red Blood Cell (RBC) Count 4.59 mill/uL (4.70-6.10); White Blood Cell (WBC) Count 8.3 thou/uL (4.8-10.8)
[2020-07-10 05:27] LABS: ALT (SGPT) 21 U/L (8-55); AST (SGOT) 17 U/L (5-34); Albumin 3.5 g/dL (3.5-5.0); Alkaline Phosphatase 50 U/L (40-110); Anion Gap 14 mmol/L (10-20); BUN (Urea Nitrogen) 8 mg/dL (8.9-20.6); Bilirubin, Total 0.4 mg/dL (0.2-1.2); Calc. Creatinine Clearance 284 mL/min (70-130); Calcium 8.6 mg/dL (7.8-10.44); Carbon Dioxide 21 mmol/L (22-29); Chloride 107 mmol/L (98-107); Estimated GFR-MDRD Greater than 90; Globulin 3.1 g/dL (2.4-3.5); Glucose 90 mg/dL (70-105); Protein, Total 6.6 g/dL (6.0-8.3); Sodium 138 mmol/L (136-145)
[2020-07-10] MEDS ORDERED: Thiamine 100 MG TAB PO SCH (09:00)
[2020-07-10] MEDS ORDERED: Folic Acid 1 MG TAB PO SCH (09:00)
[2020-07-10] MEDS ORDERED: Multivitamin W/ Minerals 1 TAB PO SCH (09:00)
--- NOTE | 2020-07-10 09:03 | PDOC.HOSPP ---
- Subjective Encounter Date: 07/10/20 Encounter Time: 08:15 Subjective: Patient seen this morning; denies new complaints or ovenight events. Reports abdominal pain has improved. Has not eaten breakfast. Reports prior to admission, pain increased after eating. - Objective Vital Signs & Weight: Vital Signs (12 hours) Temp Pulse Resp BP Pulse Ox 07/10/20 07:02 98.0 F 60 16 143/78 H 95 07/10/20 04:07 98.2 F 67 18 132/85 95 Weight Weight 144.242 kg I&O: 07/09/20 07/10/20 07/11/20 06:59 06:59 06:59 Intake Total 600 Balance 600 Result Diagrams: 07/10/20 04:50 07/10/20 04:50 Hospitalist ROS - Review of Systems Constitutional: denies: fever, chills, sweats, weakness, malaise, other Eyes: denies: pain, vision change, conjunctivae inflammation, eyelid inflammation, redness, other ENT: denies: ear pain, ear discharge, nose pain, nose discharge, nose congestion, mouth pain, mouth swelling, throat pain, throat swelling, other Respiratory: denies: cough, dry, shortness of breath, hemoptysis, SOB with excertion, pleuritic pain, sputum, wheezing, other Cardiovascular: denies: chest pain, palpitations, orthopnea, paroxysmal noc. dyspnea, edema, light headedness, other Gastrointestinal: reports: abdominal pain Genitourinary: denies: dysuria, frequency, incontinence, hematuria, retention, other Musculoskeletal: denies: neck pain, shoulder pain, arm pain, back pain, hand pain, leg pain, foot pain, other Skin: denies: rash, lesions, corina, bruising, other Neurological: denies: weakness, numbness, incoordination, change in speech, confusion, seizures, other - Medication Medications: Active Medications Generic Name Dose Route Start Last Admin Trade Name Freq PRN Reason Stop Dose Admin Famotidine 20 mg 07/09/20 21:00 07/09/20 20:14 Famotidine/Pf 20 Mg/2ml Vial SLOW IVP 20 mg Q12HR TONE Administration Sodium Chloride 1,000 mls @ 100 mls/hr 07/09/20 13:45 07/10/20 04:06 Normal Saline 0.9% IV 1,000 mls .Q10H TONE Administration Piperacillin Sod/Tazobactam 100 mls @ 200 mls/hr 07/09/20 18:00 07/10/20 05:28 Sod 4.5 gm/ Sodium Chloride IVPB 100 mls Q6HR TONE Administration Metronidazole 500 mg/ Device 100 mls @ 100 mls/hr 07/09/20 20:00 07/10/20 04:06 IVPB 100 mls 0400,1200,2000 TONE Administration - Exam General Appearance: awake alert Eye: PERRL, anicteric sclera ENT: normocephalic atraumatic, moist mucosa Neck: supple, no JVD Heart: RRR Respiratory: CTAB, normal chest expansion Gastrointestinal: soft, non-distended, normal bowel sounds Extremities: no edema Skin: normal turgor Neurological: cranial nerve grossly intact, normal sensation to touch Musculoskeletal: normal tone, normal strength Psychiatric: normal affect, A&O x 3 Hosp A/P (1) Diverticulitis Code(s): K57.92 - DVTRCLI OF INTEST, PART UNSP, W/O PERF OR ABSCESS W/O BLEED Status: Acute (2) Alcohol abuse Code(s): F10.10 - ALCOHOL ABUSE, UNCOMPLICATED Status: Chronic (3) Gout Code(s): M10.9 - GOUT, UNSPECIFIED Status: Chronic (4) Obesity Code(s): E66.9 - OBESITY, UNSPECIFIED Status: Chronic - Plan incentive spirometry, out of bed/ambulate, DVT proph w/SCDs #Diverticulitis Continue IV ABX Pepcid BID Currently on clear liquid diet; can increase as tolerated Pain medication as needed NS IV @ 75ml/hr... will change to banana bag x1 per day #Alcohol Abuse ASE protocol Benzos as needed prn for withdrawal symptoms #GOUT Home meds continued Will continue DVT and GI prophylaxis Discussed with attending; agrees to plan
[2020-07-10] MEDS: Magnesium Oxide 400 MG TAB PO SCH (09:45)
[2020-07-10] MEDS: Famotidine/PF 20 mg/2ml Vial SLOW IVP SCH ×2 (09:45→20:32)
[2020-07-10] MEDS: Allopurinol 100 MG TAB PO SCH (09:45)
[2020-07-10] MEDS: Multivitamins, Adult 10 ML, Folic Acid 1 MG, Thiamine HCl 100 MG in Dextrose 5 %-0.45 %... IV SCH (09:58)
[2020-07-10 13:53] LABS: SARS-CoV-2 MS2 Positive; SARS-CoV-2 N Gene Negative; SARS-CoV-2 S Gene Negative; SARS-CoV-2 by NAA Not Detected (NotDetected); SARS-CoV-2 orf1ab Negative
[2020-07-11] MEDS: Piperacillin/Tazobactam 4.5 GM in Sodium Chloride 0.9% 100 ML IVPB SCH ×3 (00:11→12:53)
[2020-07-11] MEDS: metroNIDAZOLE 500 MG in Premix Bag 1 BAG IVPB SCH ×2 (04:44→12:53)
[2020-07-11 06:36] LABS: Band 1 % (5-11); Eosinophils 4 % (0-10); Hemoglobin 13.9 g/dL (14.0-18.0); Lymphocytes 26 % (21-51); MDiff Complete? YES; Mean Corpuscular HGB CONC 33.9 g/dL (32.0-36.0); Mean Corpuscular Hemoglobin 30.2 pg (27.0-31.0); Mean Corpuscular Volume 89.1 fL (78.0-98.0); Mean Platelet Volume 7.8 fL (7.4-10.4); Monocytes 9 % (0-10); Neutrophil 60 % (42-75); Platelet Count 206 thou/uL (130-400); RBC Distribution Width 12.5 % (11.5-14.5); Red Blood Cell (RBC) Count 4.61 mill/uL (4.70-6.10); White Blood Cell (WBC) Count 8.5 thou/uL (4.8-10.8)
[2020-07-11 06:53] LABS: BUN (Urea Nitrogen) 8 mg/dL (8.9-20.6); Calc. Creatinine Clearance 284 mL/min (70-130); Calcium 8.7 mg/dL (7.8-10.44); Carbon Dioxide 16 mmol/L (22-29); Chloride 108 mmol/L (98-107); Estimated GFR-MDRD Greater than 90; Glucose 83 mg/dL (70-105); Potassium 4.7 mmol/L (3.5-5.1); Sodium 138 mmol/L (136-145)
[2020-07-11 07:15] LABS: Anion Gap 19 mmol/L (10-20)
[2020-07-11] MEDS: Magnesium Oxide 400 MG TAB PO SCH (09:02)
[2020-07-11] MEDS: Famotidine/PF 20 mg/2ml Vial SLOW IVP SCH (09:02)
[2020-07-11] MEDS: Allopurinol 100 MG TAB PO SCH (09:02)
--- NOTE | 2020-07-11 12:23 | DIS ---
DATE OF ADMISSION: 07/09/2020 DATE OF DISCHARGE: 07/11/2020 PRIMARY CARE PHYSICIAN: Litzy Kohler, GISELLA-Maritza CONSULTANTS: None. PROCEDURES: The patient had an abdominal pelvis CT, which showed diverticulitis involving the descending colon without adjacent fluid collection to suggest abscess. Single punctate gas density adjacent to the posterior descending colon diverticulum, which could represent gas within the diverticulum, but a focus of free gas related to the microperforation cannot be excluded. SHORT STAY SUMMARY: Mr. Shah is a 29-year-old, who reported to the emergency room on day of admission with complaints of lower abdominal pain, which started on Sunday when he was in [place]. He reported that the pain was 8/10 in severity and was constant and worse with movement. He denied any previous injuries or trauma. No heavy lifting. Pain became concentrated in the left lower quadrant, but he denied any associated nausea, vomiting, or stool changes. He did take laxatives at home thinking that his pain might be related to constipation, but that did not relieve the pain, so he came to the ER for evaluation. He underwent a CT scan and laboratory workup. CT scan findings as above. ER contacted the surgeon on-call, Dr. Ellsworth, who reviewed the CT scan and did not feel like there was any evidence for perforations. The patient was admitted under the hospitalist service for further management. He was started on IV antibiotics, Flagyl and Zosyn, started on a clear liquid diet, which was increased as tolerated. On day of exam on 07/11, he denied any further abdominal pain. Reports that he had a regular breakfast, which did not cause any pain. He has had a large bowel movement this morning and did not notice any blood or any discomfort. The patient reports that he would like to go home today if possible. Dr. Small, attending physician, also saw the patient today on discharge and agreed with discharge plan. The patient's vital signs have remained stable. Laboratory has also remained stable. The patient's white blood cell count has remained within the normal range. He did have a COVID test here, which was negative. He will be discharged home with close followup with his PCP. ALLERGIES: NONE. HOME MEDICATIONS: Allopurinol 100 mg one tablet p.o. daily. We have added on this visit Cipro 500 mg p.o. b.i.d. x7 days and Flagyl 500 mg q.6 hours x7 days. DISPOSITION: Home. DISPOSITION CONDITION: Stable. FOLLOWUP INSTRUCTIONS: The patient is to follow up with within the next 7 to 10 days. Changes in his diet were discussed in detail this morning. . Also, the patient reported on admission that he drinks 10 to 12 beers a day and this was discussed at length with the patient as well as this can exacerbate any GI issues and so discussion about decreasing alcohol consumption was had this morning prior to discharge. Signs and symptoms of worsening abdominal pain prompting ER visit was also discussed and importance of followup. The patient was instructed to get his prescriptions filled and finish his antibiotics. Job ID: [id number]
[2020-07-11 12:32] VITALS: TEMP 98.5
[2020-07-11 12:40] VITALS: BP 126/72
[2020-07-11] MEDS: Multivitamins, Adult 10 ML, Folic Acid 1 MG, Thiamine HCl 100 MG in Dextrose 5 %-0.45 %... IV SCH (12:53)
== END 2020-07-11 12:53 | disposition home or self-care (01) ==
LOC: ERS 09:49 → SURG B 13:17
PROVIDERS: ADMIT Internal Medicine; ATTEND Internal Medicine
DX: K57.32 Diverticulitis of large intestine without perforation or abscess without bleeding (principal); F10.10 Alcohol abuse, uncomplicated; M10.9 Gout, unspecified; F90.9 Attention-deficit hyperactivity disorder, unspecified type; E66.9 Obesity, unspecified; Z68.42 Body mass index [BMI] 45.0-49.9, adult; Z79.899 Other long term (current) drug therapy; Z20.828 Contact with and (suspected) exposure to other viral communicable diseases
CPT/HCPCS: 36415; 74177; 80048; 80053; 81003; 83605; 83735; 85025; 87040; 87086; 87635; 93005; 96365; 96366; 96367; 96372; 96375; 96376; G0378; J2543; J3411; J3475; J3490; J7042; Q9967; S0028; U0003

== ENCOUNTER 2021-08-08 08:55 | Emergency (ER) | payer SELFPAY ==
[2021-08-08 10:07] LABS: #Eosinphils 0.1 thou/uL (0.0-0.7); #Lymphocytes 1.5 thou/uL (1.20-3.40); #Monocytes 0.5 thou/uL (0.11-0.59); #Neutrophils 4.9 thou/uL (1.40-6.50); %Basophils 0.5 % (0.0-1.0); %Eosinophils 1.9 % (0.0-10.0); %Monocytes 6.5 % (0.0-10.0); %Neutrophils 70.2 % (42.0-75.0); Hemoglobin 14.5 g/dL (14.0-18.0); Mean Corpuscular HGB CONC 34.7 g/dL (32.0-36.0); Mean Corpuscular Hemoglobin 30.8 pg (27.0-31.0); Mean Corpuscular Volume 88.8 fL (78.0-98.0); Platelet Count 237 thou/uL (130-400); RBC Distribution Width 12.6 % (11.5-14.5); Red Blood Cell (RBC) Count 4.72 mill/uL (4.70-6.10)
[2021-08-08 10:29] LABS: ALT (SGPT) 31 U/L (8-55); AST (SGOT) 27 U/L (5-34); Albumin 4.1 g/dL (3.5-5.0); Alkaline Phosphatase 71 U/L (40-110); Anion Gap 14 mmol/L (10-20); BUN (Urea Nitrogen) 9 mg/dL (8.9-20.6); Bilirubin, Total 0.3 mg/dL (0.2-1.2); Calc. Creatinine Clearance 0 mL/min (70-130); Carbon Dioxide 23 mmol/L (22-29); Chloride 106 mmol/L (98-107); Globulin 3.3 g/dL (2.4-3.5); Glucose 126 mg/dL (70-105); Potassium 4.1 mmol/L (3.5-5.1); Protein, Total 7.4 g/dL (6.0-8.3); Sodium 139 mmol/L (136-145)
[2021-08-08] MEDS ORDERED: Iopamidol-370 76% 500 ML 1 ML ONE (13:22)
== END 2021-08-08 13:07 | disposition home or self-care (01) ==
LOC: ERS 08:55
DX: R07.81 Pleurodynia (principal); F17.210 Nicotine dependence, cigarettes, uncomplicated; Z86.39 Personal history of other endocrine, nutritional and metabolic disease
CPT/HCPCS: 71045; 71275; 80053; 84484; 85025; 85379; 93005; Q9967

== ENCOUNTER 2022-04-11 23:14 | Emergency (ER) | payer SELFPAY | END 2022-04-12 01:00 | disposition home or self-care (01) | LOC: ERS 23:14 | DX: M10.9 Gout, unspecified (principal) | CPT/HCPCS: 99282 ==

== ENCOUNTER 2023-10-30 04:17 | Inpatient (IN) | payer SELFPAY ==
[2023-10-30] MEDS ORDERED: Ketorolac Tromethamine 30 MG (1 mL) VIAL ONE ×2 (04:45→12:14)
[2023-10-30 04:58] LABS: #Basophils 0.1 thou/uL (0.0-0.2); #Eosinphils 0.1 thou/uL (0.0-0.7); #Monocytes 1.1 thou/uL (0.11-0.59); #Neutrophils 11.5 thou/uL (1.40-6.50); %Basophils 0.5 % (0.0-1.0); %Eosinophils 0.6 % (0.0-10.0); %Lymphocytes 10.4 % (21.0-51.0); %Monocytes 7.6 % (0.0-10.0); %Neutrophils 80.5 % (42.0-75.0); Hematocrit 41.3 % (42.0-52.0); Hemoglobin 14.1 g/dL (14.0-18.0); Mean Corpuscular HGB CONC 34.1 g/dL (32.0-36.0); Mean Corpuscular Hemoglobin 28.8 pg (27.0-31.0); Mean Corpuscular Volume 84.3 fl (78.0-98.0); Mean Platelet Volume 10.2 fL (7.4-10.4); Platelet Count 196 10x3/uL (130-400); RBC Distribution Width 14.9 % (11.5-14.5); White Blood Cell (WBC) Count 14.3 10x3/uL (4.8-10.8)
[2023-10-30] MEDS ORDERED: Morphine 4 MG/ML VIAL ONE (05:57)
[2023-10-30] MEDS ORDERED: metroNIDAZOLE 500 MG (100 mL) BAG ONE ×2 (05:57→14:23)
[2023-10-30] MEDS ORDERED: Ondansetron PF 4 MG/2 ML Vial ONE (05:57)
[2023-10-30 06:00] LABS: ALT (SGPT) 27 U/L (8-55); AST (SGOT) 27 U/L (5-34); Alkaline Phosphatase 61 U/L (40-110); Anion Gap 16 mmol/L (10-20); BUN (Urea Nitrogen) 10 mg/dL (8.9-20.6); Bilirubin, Total 0.7 mg/dL (0.2-1.2); Calc. Creatinine Clearance 0 mL/min (70-130); Calcium 9.1 mg/dL (7.8-10.44); Carbon Dioxide 22 mmol/L (22-29); Chloride 101 mmol/L (98-107); Estimated GFR 110; Globulin 3.3 g/dL (2.4-3.5); Glucose 128 mg/dL (70-105); Lipase 24 U/L (8-78); Potassium 3.6 mmol/L (3.5-5.1); Protein, Total 7.3 g/dL (6.0-8.3); Sodium 135 mmol/L (136-145)
[2023-10-30] MEDS ORDERED: Acetaminophen 325 MG TAB PO PRN (06:11)
[2023-10-30] MEDS ORDERED: Acetaminophen 650 MG Suppository PR PRN (06:11)
[2023-10-30] MEDS ORDERED: Ondansetron ODT 4 MG TAB PO PRN (06:11)
[2023-10-30] MEDS ORDERED: Ondansetron PF 4 MG/2 ML Vial IVP PRN (06:11)
[2023-10-30 06:40] VITALS: BMI 48.5
[2023-10-30] MEDS ORDERED: LevoFLOXacin 750 mg/D5W 150 ml Premix Bag ONE (06:43)
[2023-10-30] MEDS: Sodium Chloride 0.9% 1,000 ML IV SCH (09:57)
[2023-10-30 11:06] LABS: Bacteria/HPF None Seen HPF (None Seen); Bilirubin Negative (Negative); Blood, Urine Negative (Negative); CAUTI Indications for Culture Dysuria,urgency,freq; Clarity Clear (Clear); Glucose, Urine (Dipstick) Normal (Negative); Ketone, Urine Negative (Negative); Leukocyte Negative Leu/uL (Negative); Nitrite Negative (Negative); Protein, Urine (Dipstick) 10 mg/dL (Neg-Trace); RBC/HPF 0-3 HPF (0-3); Specific Gravity, Urine 1.012 (1.002-1.036); Squamous Epithelial 0-3 HPF (0-3); Urobilinogen Normal mg/dL (Less than 2); WBC/HPF 0-3 HPF (0-3)
[2023-10-30 11:09] LABS: Urine Culture Reflex No No
[2023-10-30] MEDS: Ketorolac Tromethamine 30 MG (1 mL) VIAL IVP PRN (12:17)
[2023-10-30] MEDS ORDERED: Lorazepam 1 MG TAB PO PRN (12:37)
[2023-10-30] MEDS ORDERED: Lorazepam 2 MG/ML VIAL IM PRN (12:37)
[2023-10-30] MEDS ORDERED: Electrolyte Replacement Protocol 1 EACH FS SCH (12:45)
[2023-10-30] MEDS: metroNIDAZOLE 500 MG in Premix 1 BAG IVPB SCH (14:27)
[2023-10-30] MEDS ORDERED: Piperacillin/Tazobactam 3.375 GM in Sodium Chloride 0.9% 100 ML IVPB SCH (21:30)
[2023-10-30] MEDS: Thiamine 100 MG TAB PO SCH (21:37)
[2023-10-30] MEDS: Piperacillin/Tazobactam 3.375 GM in Sodium Chloride 0.9% 100 ML IVPB SCH (21:38)
[2023-10-31] MEDS: Piperacillin/Tazobactam 3.375 GM in Sodium Chloride 0.9% 100 ML IVPB SCH (01:41)
[2023-10-31 04:23] LABS: #Eosinphils 0.2 thou/uL (0.0-0.7); #Monocytes 0.7 thou/uL (0.11-0.59); #Neutrophils 5.1 thou/uL (1.40-6.50); %Basophils 0.5 % (0.0-1.0); %Eosinophils 2.7 % (0.0-10.0); %Monocytes 9.5 % (0.0-10.0); %Neutrophils 65.7 % (42.0-75.0); Hemoglobin 12.1 g/dL (14.0-18.0); Mean Corpuscular HGB CONC 32.7 g/dL (32.0-36.0); Mean Corpuscular Hemoglobin 29.1 pg (27.0-31.0); Mean Platelet Volume 10.2 fL (7.4-10.4); Platelet Count 148 10x3/uL (130-400); RBC Distribution Width 14.8 % (11.5-14.5); Red Blood Cell (RBC) Count 4.16 mill/uL (4.70-6.10); White Blood Cell (WBC) Count 7.8 10x3/uL (4.8-10.8)
[2023-10-31 05:04] LABS: Mean Corpuscular Volume 88.9 fl (78.0-98.0)
[2023-10-31 05:23] LABS: Anion Gap 12 mmol/L (10-20); BUN (Urea Nitrogen) 10 mg/dL (8.9-20.6); Calc. Creatinine Clearance 245 mL/min (70-130); Calcium 8.7 mg/dL (7.8-10.44); Carbon Dioxide 24 mmol/L (22-29); Chloride 106 mmol/L (98-107); Estimated GFR 118; Glucose 83 mg/dL (70-105); Potassium 4.1 mmol/L (3.5-5.1); Sodium 138 mmol/L (136-145)
[2023-10-31] MEDS ORDERED: LevoFLOXacin 750 mg/D5W 750 MG in Premix 1 BAG IVPB SCH (06:00)
[2023-10-31 07:47] VITALS: BP 136/86; TEMP 98.2
[2023-10-31] MEDS: Thiamine 100 MG TAB PO SCH (08:45)
[2023-10-31] MEDS: Pantoprazole 40 MG VIAL IVP SCH (08:46)
[2023-10-31] MEDS ORDERED: Lorazepam 1 MG TAB PO PRN (12:38)
[2023-11-01] MEDS ORDERED: Lorazepam 1 MG TAB PO PRN (12:38)
[2023-11-02] MEDS ORDERED: FLU VACC QS2023-24(6MOS UP)/PF 60 MCG/0.5 ML SYRINGE IM ONE (09:00)
[2023-11-02] MEDS ORDERED: Lorazepam 0.5 MG TAB PO PRN (12:38)
== END 2023-10-31 16:41 | disposition home or self-care (01) | DRG 392 ==
LOC: ERS 04:17 → ERHOLD 06:24 → T4-A 17:03
PROVIDERS: ADMIT Student in an Organized Health Care Education/Training Program; ATTEND Internal Medicine
DX: K57.32 Diverticulitis of large intestine without perforation or abscess without bleeding (principal); Z68.42 Body mass index [BMI] 45.0-49.9, adult; M10.9 Gout, unspecified; I10 Essential (primary) hypertension; K80.20 Calculus of gallbladder without cholecystitis without obstruction; E66.01 Morbid (severe) obesity due to excess calories; F10.10 Alcohol abuse, uncomplicated; Z98.890 Other specified postprocedural states; Z79.899 Other long term (current) drug therapy
CPT/HCPCS: 36415; 74176; 80048; 80053; 81001; 83605; 83690; 85025; 87040; 87086; 96365; 96375; C9113; J1885; J1956; J2270; J2405; J2543; J3490; J7050